=== PATIENT | male | born 1955 | race American Indian/Alaskan Native ===

== ENCOUNTER 2019-02-02 00:09 | Inpatient (IN) | payer MEDICAID, OTHER ==
[2019-02-02 01:43] LABS: BASO % 0.7 % (0.0-2.0); EOS # 0.1 K/uL (0.0-0.7); EOS % 2.3 % (0.0-4.0); HEMOGLOBIN 12.6 g/dL (12.0-18.0); LYMPH # 1.9 K/uL (1.0-4.3); LYMPH % 33.2 % (20.0-40.0); MEAN CELL VOLUME 97.6 fL (80.0-94.0); MEAN CORPUSCULAR HEMOGLOBIN 32.6 pg (27.0-31.0); MEAN CORPUSCULAR HGB CONC 33.4 g/dL (33.0-37.0); MEAN PLATELET VOLUME 8.9 fL (7.2-11.7); MONO # 0.6 K/uL (0.0-0.8); MONO % 10.2 % (0.0-10.0); NEUT # 3.1 K/uL (1.8-7.0); NEUT % 53.6 % (50.0-75.0); RBC 3.87 Mil/uL (4.40-5.90); RED CELL DISTRIBUTION WIDTH 13.4 % (11.5-14.5); WHITE BLOOD COUNT 5.8 K/uL (4.8-10.8)
[2019-02-02 01:53] LABS: ALB/GLOB RATIO 1.2 (1.0-2.1); ALBUMIN 4.4 g/dL (3.5-5.0); ALT/SGPT 10 U/L (21-72); AST/SGOT 30 U/L (17-59); BLOOD UREA NITROGEN 12 mg/dL (9-20); CALCIUM 9.3 mg/dl (8.6-10.4); GFR NON-AFRICAN AMERICAN > 60
[2019-02-02 02:11] LABS: SQUAMOUS EPITHIAL < 1 /hpf (0-5); URINE BILIRUBIN NEGATIVE (NEGATIVE); URINE BLOOD 2+ (NEGATIVE); URINE CLARITY Clear (Clear); URINE COLOR Straw (YELLOW); URINE GLUCOSE (UA) NORMAL (Normal); URINE LEUKOCYTE ESTERASE NEG Leu/uL (Negative); URINE PROTEIN NEGATIVE (NEGATIVE); URINE UROBILINOGEN NORMAL mg/dL (0.2-1.0)
[2019-02-02 02:25] LABS: BARBITURATES, UR NEGATIVE (NEGATIVE); BENZODIAZEPINES, UR NEGATIVE (NEGATIVE); OPIATES, UR NEGATIVE (NEGATIVE); PHENCYCLIDINE, UR NEGATIVE (NEGATIVE)
--- NOTE | 2019-02-02 02:44 | C.PDOC ---
History Of Present Illness 63 y/o male pt presents to the ER for detox. Pt last substance use was x2 days ago. Pt has no other complaints or associated sx at this time. Time Seen by Provider: 02/02/19 00:54 Chief Complaint (Nursing): Substance Abuse History Per: Patient History/Exam Limitations: no limitations Onset/Duration Of Symptoms: Days Current Symptoms Are (Timing): Still Present Past Medical History Reviewed: Historical Data, Nursing Documentation, Vital Signs Vital Signs: Last Vital Signs Temp 98.2 F 02/02/19 00:16 Pulse 97 H 02/02/19 00:16 Resp 16 02/02/19 00:16 BP 135/91 H 02/02/19 00:16 Pulse Ox 97 02/02/19 00:16 - Medical History PMH: HIV Surgical History: Appendectomy Family History: States: No Known Family Hx - Social History Hx Alcohol Use: Yes Hx Substance Use: No Review Of Systems Except As Marked, All Systems Reviewed And Found Negative. Constitutional: Positive for: Other (request for detox ). Negative for: Fever, Chills Gastrointestinal: Negative for: Nausea, Vomiting Skin: Negative for: Rash Neurological: Negative for: Weakness, Numbness Physical Exam - Physical Exam Appears: Non-toxic, No Acute Distress Skin: Warm, Dry Head: Normacephalic Eye(s): bilateral: Normal Inspection Oral Mucosa: Moist Throat: Normal Chest: Symmetrical Cardiovascular: Rhythm Regular Respiratory: Normal Breath Sounds Gastrointestinal/Abdominal: Soft, No Tenderness Neurological/Psych: Oriented x3, Normal Speech ED Course And Treatment - Laboratory Results Result Diagrams: 02/02/19 01:41 02/02/19 01:41 Lab Results: Total Bilirubin 0.7 mg/dL (0.2-1.3) 02/02/19 01:41 AST 30 U/L (17-59) 02/02/19 01:41 ALT 10 U/L (21-72) L 02/02/19 01:41 Alkaline Phosphatase 56 U/L (38-126) 02/02/19 01:41 Total Protein 7.9 g/dL (6.3-8.3) 02/02/19 01:41 Albumin 4.4 g/dL (3.5-5.0) 02/02/19 01:41 Globulin 3.5 gm/dL (2.2-3.9) 02/02/19 01:41 Albumin/Globulin Ratio 1.2 (1.0-2.1) 02/02/19 01:41 Urine Color Straw (YELLOW) 02/02/19 02:06 Urine Clarity Clear (Clear) 02/02/19 02:06 Urine pH 7.0 (5.0-8.0) 02/02/19 02:06 Ur Specific Center [place] 1.005 (1.003-1.030) 02/02/19 02:06 Urine Protein Negative mg/dL (NEGATIVE) 02/02/19 02:06 Urine Glucose (UA) Normal mg/dL (Normal) 02/02/19 02:06 Urine Ketones Negative mg/dL (NEGATIVE) 02/02/19 02:06 Urine Blood 2+ (NEGATIVE) H 02/02/19 02:06 Urine Nitrate Negative (NEGATIVE) 02/02/19 02:06 Urine Bilirubin Negative (NEGATIVE) 02/02/19 02:06 Urine Urobilinogen Normal mg/dL (0.2-1.0) 02/02/19 02:06 Ur Leukocyte Esterase Neg Chasity/uL (Negative) 02/02/19 02:06 Urine WBC (Auto) < 1 /hpf (0-5) 02/02/19 02:06 Urine RBC (Auto) < 1 /hpf (0-3) 02/02/19 02:06 Ur Squamous Epith Cells < 1 /hpf (0-5) 02/02/19 02:06 O2 Sat by Pulse Oximetry: 97 (RA) Pulse Ox Interpretation: Normal Progress Note: Pt is medically cleared for Detox Disposition Counseled Patient/Family Regarding: Diagnosis, Need For Followup - Disposition - 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 - Scribe Statement The provider has reviewed the documentation as recorded by the Payton Jacobsen Do All medical record entries made by the Payton were at my direction and personally dictated by me. I have reviewed the chart and agree that the record accurately reflects my personal performance of the history, physical exam, medical decision making, and the department course for this patient. I have also personally directed, reviewed, and agree with the discharge instructions and disposition.
--- NOTE | 2019-02-02 04:00 | PCM.BM ---
Treatment Plan Problems - Problems identified on initial assessmt altered health maintenance Date Initiated: 02/02/19 Time Initiated: 05:00 Assessment reference: NA Status: Active knowledge deficit: alcohol use Date Initiated: 02/02/19 Time Initiated: 05:00 Assessment reference: NA Status: Active Treatment assets and liabiliti Patient Assests: cooperative, ADL independent, cognitively intact Patient Liabilities: substance abuse - Milieu Protocol Maintain good personal hygiene: daily Encourage regular showers, daily Remind patient to perform daily oral care, daily Assist patient to perform ADL's Maintain personal safety: every shift Educate patient to report safety concerns to staff, every shift Monitor environment for contraband/sharps Medication safety: Monitor for expected outcome, potential side effects: every shift, Assess barriers to learning: every shift, Assess readiness for medication education: every shift
[2019-02-02 09:50] VITALS: RESP 18
[2019-02-02] MEDS: PREZCOBIX PO SCH (14:00)
[2019-02-03] MEDS: PREZCOBIX PO SCH (09:19)
--- NOTE | 2019-02-03 22:15 | PCM.PSYCH ---
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 PT STARTED DRINKING WHEN HE WAS [age] YEARS OLD AND ALCOHOL HAS BEEN A PROBLEM EVER SINCE. HE DENIES USE AND ABUSE OF ANY OTHER SUBSTANCE LICIT OR ILLICIT. HE STARTED DRINKING AGAIN AFTER THE OF HIS . PREVIOUS TO THIS HE SUSAN 19 MONTHS OF SOBRIETY. MOTHER AND FATHER ARE , PT HAD 3 SISTERS AND 4 BROTHERS, ONLY 1 SISTER AND 2 BROTHERS ARE STILL ALIVE. PT'S FATHER WAS AN ALCOHOLIC, AND A SISTER HAD BIPOLAR DISORDER. 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 SCHEDULED FOR SURGERY DM HTN Current Medications: Active Medications Generic Name Dose Route Start Last Admin Trade Name Freq PRN Reason Stop Dose Admin Clonidine HCl 0.1 mg 02/02/19 03:52 02/03/19 17:20 Catapres PO 0.1 mg Q6 PRN Administration Symptoms of alcohol withdrawl Dolutegravir Sodium 50 mg 02/02/19 14:00 02/03/19 09:19 Tivicay PO 50 mg DAILY PATIENCE Administration Protocol Finasteride 5 mg 02/03/19 14:00 02/03/19 13:13 Proscar PO 5 mg DAILY PATIENCE Administration Home Med 1 tab 02/02/19 14:00 02/03/19 09:19 Patient's Own Medication PO 1 tab DAILY PATIENCE Administration Hydroxyzine HCl 25 mg 02/02/19 03:53 Atarax PO Q6 PRN Anxiety Ibuprofen 600 mg 02/02/19 03:53 Motrin Tab PO Q6 PRN Pain, moderate (4-7) Metformin HCl 850 mg 02/02/19 18:00 02/03/19 17:19 Glucophage PO 850 mg BID PATIENCE Administration Tamsulosin HCl 0.4 mg 02/03/19 10:00 02/03/19 10:04 Flomax PO 0.4 mg DAILY PATIENCE Administration Past Psychiatric History - Past Psychiatric History Previous Treatment History: None Pertinent Medical Hx (Current Medical&Sleep Prob, Allergies): Allergies Allergy/AdvReac Type Severity Reaction Status Date / Time No Known Allergies Allergy Verified 02/02/19 00:19 Darunavir/Cobicistat [Prezcobix 150 mg-800 mg] 1 tab PO DAILY 02/02/19 Finasteride [Proscar] 5 mg PO DAILY 02/02/19 Tamsulosin [Flomax] 0.4 mg PO DAILY 02/02/19 Tivicay 1 tab PO DAILY 02/02/19 metFORMIN [glucOPHAGE] 850 mg PO BID 02/02/19 Review of Systems - Constitutional Constitutional: Malaise - EENT Eyes: UNREMARKABLE Ears: UNREMARKABLE Nose/Mouth/Throat: UNREMARKABLE - Cardiovascular Cardiovascular: UNREMARKABLE - Respiratory Respiratory: UNREMARKABLE - Gastrointestinal Gastrointestinal: UNREMARKABLE - Genitourinary Genitourinary: UNREMARKABLE - Integumentary Integumentary: UNREMARKABLE - Neurological Neurological: Tremor - Psychiatric Psychiatric: UNREMARKABLE - Hematologic/Lymphatic Hematologic: UNREMARKABLE Mental Status Examination - Personal Presentation Personal Presentation: Looks younger than stated age, Dressed appropriate to season - Affect Affect: Other - Motor Activity Motor Activity: Calm - Reliability in Providing Information Reliability in Providing Information: Good - Speech Speech: Organized - Mood Mood: Neutral - Formal Thought Process Formal Thought Process: No Impairment - Cognitive Functions Orientation: Person, Place, Situation, Time Sensorium: Alert Attention/Concentration: Attentive Abstract Thinking: As evidence by literal perception of proverbs Estimate of Intelligence: Average Judgement: Intact, as evidence by: Insight regarding need for hospitalization Memory: Recent intact, as evidence by: Ability to recall events of the day, Remote intact, as evidenced by: Abilit to recall sig. life events - Risk Risk: Seizure, Withdrawal - Strength & Assets Inventory Strength & Assets Inventory: Intelligence, Education, Employment history, Skills, Life experience - Limitations Limitations: Living alone, Other DSM 5 DX - DSM 5 DSM 5 Diagnosis: ALCOHOL WITHDRAWAL : PT DOES NOT WANTS ANY BENZODIAZEPINES BECAUSE HE STATES HE IS HAVING NO WITHDRAWAL SXS AT THIS TIME ALCOHOL USE DISORDER: MODERATE PR CBT GROUPS SUPPORTIVE PSYCHOTHERAPY MEDICAL PROBLEMS CIRRHOSIS OF LIVER DM CANCER OFV THE PROSTATE - Recommended/Plan of Treatment Treatment Recommendations and Plan of Treatment: SEE ABOVE Projected ELOS: 5 DAYS Prognosis: GOOD Discharge Plan and Discharge Criteria: NO SIGNS OF ACUTE WITHDRAWAL - Smoking Cessation Smoking Cessation Initiated: No
--- NOTE | 2019-02-03 22:16 | PCM.PSYCH ---
Initial Psychiatric Evaluation - Initial Psychiatric Evaluation Legal Status: Capacity Chief Complaint (in patient's own words): I NEED TO GET SOBER AND BACK TO MY BUSINESS Patient's Reaction to Hospitalization: I NEED TO BE HERE AFTER THE LAST DETOX I WAS SOBER FOR 19 MONTHS Current Medications: Active Medications Generic Name Dose Route Start Last Admin Trade Name Freq PRN Reason Stop Dose Admin Clonidine HCl 0.1 mg 02/02/19 03:52 02/03/19 17:20 Catapres PO 0.1 mg Q6 PRN Administration Symptoms of alcohol withdrawl Dolutegravir Sodium 50 mg 02/02/19 14:00 02/03/19 09:19 Tivicay PO 50 mg DAILY PATIENCE Administration Protocol Finasteride 5 mg 02/03/19 14:00 02/03/19 13:13 Proscar PO 5 mg DAILY PATIENCE Administration Home Med 1 tab 02/02/19 14:00 02/03/19 09:19 Patient's Own Medication PO 1 tab DAILY PATIENCE Administration Hydroxyzine HCl 25 mg 02/02/19 03:53 Atarax PO Q6 PRN Anxiety Ibuprofen 600 mg 02/02/19 03:53 Motrin Tab PO Q6 PRN Pain, moderate (4-7) Metformin HCl 850 mg 02/02/19 18:00 02/03/19 17:19 Glucophage PO 850 mg BID PATIENCE Administration Tamsulosin HCl 0.4 mg 02/03/19 10:00 02/03/19 10:04 Flomax PO 0.4 mg DAILY PATIENCE Administration Past Psychiatric History - Past Psychiatric History Pertinent Medical Hx (Current Medical&Sleep Prob, Allergies): Allergies Allergy/AdvReac Type Severity Reaction Status Date / Time No Known Allergies Allergy Verified 02/02/19 00:19 Darunavir/Cobicistat [Prezcobix 150 mg-800 mg] 1 tab PO DAILY 02/02/19 Finasteride [Proscar] 5 mg PO DAILY 02/02/19 Tamsulosin [Flomax] 0.4 mg PO DAILY 02/02/19 Tivicay 1 tab PO DAILY 02/02/19 metFORMIN [glucOPHAGE] 850 mg PO BID 02/02/19
--- NOTE | 2019-02-03 22:29 | PCM.PYCHPN ---
Psychiatric Progress Note - Psychiatric Progress Note Patient Chief Complaint: I NEED TO GET SOBER TO GET BACK TO MY BUSINESS Problems Identified/Issues Discussed: PT SEEN AND EXAMINED DISCUSSED WITH STAFF DISCUSSED WITH PT THAT EVEN THOUGH HE HAD NO SIGNS OF WITHDRAWAL HEWAS AT RISK OF SEIZURES Medical Problems: NOTHING ACUTE Diagnostic Results: REVIEWED DSM 5 Symptoms Update: IRRITABILITY Medication Change: No Medical Record Reviewed: Yes Mental Status Examination - Cognitive Function Orientation: Person, Place, Situation, Time Memory: Intact Attention: WNL Concentration: WNL Association: WNL Fund of Knowledge: WNL - Mood Mood: Neutral - Affect Affect: Other - Speech Speech: Appropriate - Formal Thought Process Formal Thought Process: No Impairment - Suicidal Ideation Suicidal Ideation: No - Homicidal Ideation Homicidal Ideation: No Goal/Treatment Plan - Goal/Treatment Plan Need for Continued Stay: Discharge may exacerbated symptoms Progress Toward Problem(s) and Goals/Treatment Plan: ALCOHOL WITHDRAWAL: PT IS NOT ON ANY BENZODIAZEPINES BE CAUSE HAS NOT SCORED ALCOHOL USE DISORDER MODERATE [place] CBT GROUPS SUPPORTIVE PSYCHOTHERAPY MEDICAL PROBLEMS CONTINUE SAME MEDS AND TREATMENT Estimated Date of D/C: 02/06/19 - Smoking Cessation Smoking Cessation Initiated: No
--- NOTE | 2019-02-04 08:51 | PCM.PYCHDC ---
Mental Status Examination - Mental Status Examination Orientation: Person Discharge Summary - Discharge Note Consultations:: List each consultation separately and include: 1. Reason for request. 2. Findings. 3. Follow-up Summary of Hospital Course include:: 1. Description of specific treatment plan utilized for patients during their course of treatmen. 2. Summarize the time- course for resolution of acute symptoms and/or regressed behaviors. 3. Describe issues identified and worked on during hospitalization. 4. Describe medication utilized. 5. Describe medical problems identified and treated. 6. Reassessment of suicide risk Summary of Hospital Course: Pt said "I'll just go to AA meetings" He did not have major withdrawal symptoms and got discharged early. - Final Diagnosis (DSM 5) Condition upon Discharge: GOOD Disposition: HOME/ ROUTINE
[2019-02-04 09:06] VITALS: BP 136/84; PULSE 71; TEMP 98; O2SAT 96
[2019-02-04] MEDS: PREZCOBIX PO SCH (09:27)
== END 2019-02-04 11:15 | disposition home or self-care (01) | DRG 750 ==
LOC: C.ER 00:09 → C.7D 03:38
PROVIDERS: ADMIT Psychiatry & Neurology Psychiatry; ATTEND Psychiatry & Neurology Psychiatry
PROC: HZ2ZZZZ Detoxification Services for Substance Abuse Treatment (ICD-10-PCS; principal; 2019-02-02)
PROC: HZ59ZZZ Individual Psychotherapy for Substance Abuse Treatment, Supportive (ICD-10-PCS; 2019-02-02)
PROC: HZ46ZZZ Group Counseling for Substance Abuse Treatment, Psychoeducation (ICD-10-PCS; 2019-02-02)
DX: F10.230 Alcohol dependence with withdrawal, uncomplicated (principal); K70.30 Alcoholic cirrhosis of liver without ascites; E11.9 Type 2 diabetes mellitus without complications; Z85.46 Personal history of malignant neoplasm of prostate; Z81.1 Family history of alcohol abuse and dependence; Z81.8 Family history of other mental and behavioral disorders